=== PATIENT | male | born 1985 | race Hispanic/Latino ===

== ENCOUNTER 2019-05-26 19:16 | Emergency (ER) | payer SELFPAY ==
[2019-05-26 19:23] VITALS: BP 170/100
--- NOTE | 2019-05-26 19:27 | Event Note ---
ED Screening Note ED Screening Note: Here for ETOH detox needs med clearance This initial assessment/diagnostic orders/clinical plan/treatment(s) is/are subject to change based on patients health status, clinical progression and re- assessment by fellow clinical providers in the ED. Further treatment and workup at subsequent clinical providers discretion. Patient/guardian urged not to elope from the ED as their condition may be serious if not clinically assessed and managed. Initial orders include: labs ua
== END 2019-05-26 20:15 | disposition left against medical advice (07) ==
LOC: EEVIPCON 19:16 → ED 19:16
DX: Z00.00 Encounter for general adult medical examination without abnormal findings (principal); Z53.21 Procedure and treatment not carried out due to patient leaving prior to being seen by health care provider

== ENCOUNTER 2019-05-30 10:15 | Emergency (ER) | payer SELFPAY ==
[2019-05-30 10:47] LABS: Basophils # (Auto) 0.1 K/mm3 (0.0-0.1); Basophils % (Auto) 0.6 % (0.0-1.8); Eosinophils # (Auto) 0.2 K/mm3 (0.0-0.4); Eosinophils % (Auto) 1.4 % (0.0-4.3); Hematocrit 51.4 % (35.5-45.6); Hemoglobin 17.9 gm/dl (11.8-15.2); Lymphocytes # (Auto) 2.2 K/mm3 (1.2-5.4); Lymphocytes % (Auto) 20.7 % (13.4-35.0); Mean Corpuscular HGB Conc 35 % (32-34); Mean Corpuscular Volume 102 fl (84-94); Monocytes # (Auto) 0.7 K/mm3 (0.0-0.8); Platelet Count 272 K/mm3 (140-440); Red Blood Count 5.04 M/mm3 (3.65-5.03); Red Cell Distribution Width 13.4 % (13.2-15.2)
[2019-05-30 11:04] LABS: Alanine Aminotransferase 328 units/L (7-56); Albumin 4.9 g/dL (3.9-5); BUN/Creatinine Ratio 10; Blood Urea Nitrogen 7 mg/dL (9-20); Calcium 10.1 mg/dL (8.4-10.2); Hemolysis Index 7
[2019-05-30 11:07] LABS: Amphetamine Screen,Urine PRESUMPTIVE NEGATIVE; Benzodiazepines Screen,Urine PRESUMPTIVE NEGATIVE; Cocaine Screen,Urine PRESUMPTIVE NEGATIVE; Methadone Screen,Urine PRESUMPTIVE NEGATIVE; Opiate Screen,Urine PRESUMPTIVE NEGATIVE
[2019-05-30 11:31] LABS: Cannabinoid Screen,Urine PRESUMPTIVE POSITIVE
[2019-05-30] MEDS ORDERED: VITAMIN B-1 100 MG, FOLVITE 1 MG, INFUVITE 10 ML in NACL 0.9% 1000 ML 1,000 ML IV ONE (13:42)
[2019-05-30] MEDS ORDERED: ZOFRAN IV ONE (13:42)
[2019-05-30] MEDS ORDERED: NACL 0.9% 1000 ML 1,000 ML IV ONE (13:43)
[2019-05-30] MEDS ORDERED: ATIVAN IV ONE ×3 (13:43→20:25)
--- NOTE | 2019-05-30 14:23 | Emergency Department Report ---
<MARY VILLAVICENCIO - Last Filed: 05/30/19 20:54> ED Alcohol HPI - General Chief Complaint: Medical Clearance Stated Complaint: DETOX CLEARANCE Time Seen by Provider: 05/30/19 13:09 - Related Data Allergies Allergy/AdvReac Type Severity Reaction Status Date / Time codeine Allergy Swelling Verified 05/26/19 19:18 ED Medical Decision Making - Lab Data Result diagrams: 05/30/19 10:26 05/30/19 10:26 - Medical Decision Making The patient is medically cleared Patient will be going to [facility] via private vehicle ED Disposition Clinical Impression: Alcohol abuse, Dehydration, Medical clearance for psychiatric admission, Nausea and vomiting Disposition: [id number]/TX-[id number] ANOTHER TYPE HLTHCARE Is pt being admited?: No Does the pt Need Aspirin: No Condition: Stable Instructions: Abuse of Alcohol (ED) Referrals: PRIMARY CARE,MD [Primary Care Provider] - 3-5 Days [facility] [Provider Group] - 3-5 Days [facility] [Provider Group] - 3-5 Days Time of Disposition: 20:56 <SUKI ROSALES - Last Filed: 05/31/19 13:08> ED Alcohol HPI - General Source: patient Mode of arrival: Ambulatory Limitations: Language Barrier (indirect fire infantryman used) - History of Present Illness Initial Comments: 33-year-old male with a past medical history of hypertension and alcohol abuse as to the hospital requesting medical clearance for alcohol detox. He apparently contacted [place] [facility] prior to arrival and was sent for medical clearance. Patient drinks about half a gallon of liquor daily. Last drink was 2-4 hours prior to arrival. Patient's history of alcohol withdrawal tremors but denies seizures. The last 5 days patient states he has had nausea, vomiting, and poor fluid and food intake. He's had occasional blood-streaked vomitus and denies any melena, bloody stools, or fevers. Patient admits to marijuana use. He denies suicidal ideation, homicidal ideation, or hallucin ations. ED Review of Systems ROS: Stated complaint: DETOX CLEARANCE Other details as noted in HPI Comment: All other systems reviewed and negative ED Past Medical Hx - Past Medical History Previous Medical History?: Yes Hx Hypertension: Yes - Surgical History Past Surgical History?: Yes Additional Surgical History: right thumb surgery - Social History Smoking Status: Unknown if ever smoked ED Physical Exam - General Limitations: No Limitations - Other Other exam information: Normal: No acute distress Head: Atraumatic Eyes: Normal appearance, pupils equally reactive to light, extraocular movements intact ENT: Moist mucous membranes Neck: Normal appearance, no midline cervical tenderness, no meningismus Chest: Clear to auscultation bilaterally, no wheezes, rales, crackles Cardiovascular: Regular rate and rhythm Abdomen: Soft, nontender, nondistended, no rebound or guarding, normal bowel sounds Back: Normal inspection Extremity: Normal appearance, full range of motion Neuro: Alert and oriented 3, speech normal, no gross motor sensory deficit, resting tremor noted Psych: Appropriate Skin: No rash ED Course Vital Signs 05/30/19 05/30/19 05/30/19 10:20 13:34 15:44 Temperature 98.4 F 98.0 F Pulse Rate 106 H 88 111 H Respiratory 22 14 18 Rate Blood Pressure 140/97 116/87 Blood Pressure 140/97 141/65 [Left] O2 Sat by Pulse 98 100 Oximetry 05/30/19 05/30/19 05/30/19 16:51 18:48 19:09 Temperature Pulse Rate 85 95 H 109 H Respiratory 17 18 18 Rate Blood Pressure Blood Pressure 132/61 132/66 125/69 [Left] O2 Sat by Pulse 100 100 100 Oximetry ED Medical Decision Making - Lab Data Result diagrams: 05/30/19 10:26 05/30/19 10:26 Lab Results 05/30/19 05/30/19 05/30/19 Range/Units 10:26 10:26 10:26 WBC 10.6 (4.5-11.0) K/mm3 RBC 5.04 H (3.65-5.03) M/mm3 Hgb 17.9 H (11.8-15.2) gm/dl Hct 51.4 H (35.5-45.6) % MCV 102 H (84-94) fl MCH 36 H (28-32) pg MCHC 35 H (32-34) % RDW 13.4 (13.2-15.2) % Plt Count 272 (140-440) K/mm3 Lymph % (Auto) 20.7 (13.4-35.0) % [place] % (Auto) 7.0 (0.0-7.3) % Eos % (Auto) 1.4 (0.0-4.3) % Baso % (Auto) 0.6 (0.0-1.8) % Lymph # 2.2 (1.2-5.4) K/mm3 [place] # 0.7 (0.0-0.8) K/mm3 Eos # 0.2 (0.0-0.4) K/mm3 Baso # 0.1 (0.0-0.1) K/mm3 Seg Neutrophils % 70.3 H (40.0-70.0) % Seg Neutrophils # 7.5 (1.8-7.7) K/mm3 PT (12.2-14.9) Sec. INR (0.87-1.13) APTT (24.2-36.6) Sec. Sodium 137 (137-145) mmol/L Potassium 3.9 (3.6-5.0) mmol/L Chloride 95.6 L (98-107) mmol/L Carbon Dioxide 23 (22-30) mmol/L Anion Gap 22 mmol/L BUN 7 L (9-20) mg/dL Creatinine 0.7 L (0.8-1.5) mg/dL Estimated GFR > 60 ml/min BUN/Creatinine Ratio 10 % Glucose 109 H (75-100) mg/dL Calcium 10.1 (8.4-10.2) mg/dL Magnesium (1.7-2.3) mg/dL Total Bilirubin 0.70 (0.1-1.2) mg/dL AST 414 H (5-40) units/L ALT 328 H (7-56) units/L Alkaline Phosphatase 135 H (35-129) units/L Total Protein 7.8 (6.3-8.2) g/dL Albumin 4.9 (3.9-5) g/dL Albumin/Globulin Ratio 1.7 % Lipase (13-60) units/L Urine Opiates Screen Urine Methadone Screen Ur Barbiturates Screen Ur Phencyclidine Scrn Ur Amphetamines Screen U Benzodiazepines Scrn Urine Cocaine Screen U Marijuana (THC) Screen Drugs of Abuse Note Plasma/Serum Alcohol 0.16 H (0-0.07) % Hepatitis A IgM Ab (NonReactive) Hep Bs Antigen (Negative) Hep B Core IgM Ab (NonReactive) Hepatitis C Antibody (NonReactive) 05/30/19 05/30/19 05/30/19 Range/Units 10:26 10:26 10:31 WBC (4.5-11.0) K/mm3 RBC (3.65-5.03) M/mm3 Hgb (11.8-15.2) gm/dl Hct (35.5-45.6) % MCV (84-94) fl MCH (28-32) pg MCHC (32-34) % RDW (13.2-15.2) % Plt Count (140-440) K/mm3 Lymph % (Auto) (13.4-35.0) % [place] % (Auto) (0.0-7.3) % Eos % (Auto) (0.0-4.3) % Baso % (Auto) (0.0-1.8) % Lymph # (1.2-5.4) K/mm3 [place] # (0.0-0.8) K/mm3 Eos # (0.0-0.4) K/mm3 Baso # (0.0-0.1) K/mm3 Seg Neutrophils % (40.0-70.0) % Seg Neutrophils # (1.8-7.7) K/mm3 PT (12.2-14.9) Sec. INR (0.87-1.13) APTT (24.2-36.6) Sec. Sodium (137-145) mmol/L Potassium (3.6-5.0) mmol/L Chloride (98-107) mmol/L Carbon Dioxide (22-30) mmol/L Anion Gap mmol/L BUN (9-20) mg/dL Creatinine (0.8-1.5) mg/dL Estimated GFR ml/min BUN/Creatinine Ratio % Glucose (75-100) mg/dL Calcium (8.4-10.2) mg/dL Magnesium 2.20 (1.7-2.3) mg/dL Total Bilirubin (0.1-1.2) mg/dL AST (5-40) units/L ALT (7-56) units/L Alkaline Phosphatase (35-129) units/L Total Protein (6.3-8.2) g/dL Albumin (3.9-5) g/dL Albumin/Globulin Ratio % Lipase 55 (13-60) units/L Urine Opiates Screen Presumptive negative Urine Methadone Screen Presumptive negative Ur Barbiturates Screen Presumptive negative Ur Phencyclidine Scrn Presumptive negative Ur Amphetamines Screen Presumptive negative U Benzodiazepines Scrn Presumptive negative Urine Cocaine Screen Presumptive negative U Marijuana (THC) Screen Presumptive positive Drugs of Abuse Note Disclamer Plasma/Serum Alcohol (0-0.07) % Hepatitis A IgM Ab Non-reactive (NonReactive) Hep Bs Antigen Non-reactive (Negative) Hep B Core IgM Ab Non-reactive (NonReactive) Hepatitis C Antibody Non-reactive (NonReactive) 05/30/19 Range/Units 14:34 WBC (4.5-11.0) K/mm3 RBC (3.65-5.03) M/mm3 Hgb (11.8-15.2) gm/dl Hct (35.5-45.6) % MCV (84-94) fl MCH (28-32) pg MCHC (32-34) % RDW (13.2-15.2) % Plt Count (140-440) K/mm3 Lymph % (Auto) (13.4-35.0) % [place] % (Auto) (0.0-7.3) % Eos % (Auto) (0.0-4.3) % Baso % (Auto) (0.0-1.8) % Lymph # (1.2-5.4) K/mm3 [place] # (0.0-0.8) K/mm3 Eos # (0.0-0.4) K/mm3 Baso # (0.0-0.1) K/mm3 Seg Neutrophils % (40.0-70.0) % Seg Neutrophils # (1.8-7.7) K/mm3 PT 12.7 (12.2-14.9) Sec. INR 0.98 (0.87-1.13) APTT 24.9 (24.2-36.6) Sec. Sodium (137-145) mmol/L Potassium (3.6-5.0) mmol/L Chloride (98-107) mmol/L Carbon Dioxide (22-30) mmol/L Anion Gap mmol/L BUN (9-20) mg/dL Creatinine (0.8-1.5) mg/dL Estimated GFR ml/min BUN/Creatinine Ratio % Glucose (75-100) mg/dL Calcium (8.4-10.2) mg/dL Magnesium (1.7-2.3) mg/dL Total Bilirubin (0.1-1.2) mg/dL AST (5-40) units/L ALT (7-56) units/L Alkaline Phosphatase (35-129) units/L Total Protein (6.3-8.2) g/dL Albumin (3.9-5) g/dL Albumin/Globulin Ratio % Lipase (13-60) units/L Urine Opiates Screen Urine Methadone Screen Ur Barbiturates Screen Ur Phencyclidine Scrn Ur Amphetamines Screen U Benzodiazepines Scrn Urine Cocaine Screen U Marijuana (THC) Screen Drugs of Abuse Note Plasma/Serum Alcohol (0-0.07) % Hepatitis A IgM Ab (NonReactive) Hep Bs Antigen (Negative) Hep B Core IgM Ab (NonReactive) Hepatitis C Antibody (NonReactive) ua pending - EKG Data -: EKG Interpreted by Me EKG shows normal: sinus rhythm, axis (qrs 77), QRS complexes (qrsd 86), ST-T waves (no stemi) Rate: tachycardia (110) - Radiology Data Radiology results: report reviewed CT abdomen pelvis w con INDICATION: n,v, etoh abuse. TECHNIQUE: All CT scans at this location are performed using CT dose reduction for ALARA by means of automated exposure control. COMPARISON: None available. FINDINGS: Lung bases are clear. Marked, diffuse hepatic steatosis, with no focal liver lesions. Gallbladder, spleen, pancreas, kidneys and adrenals are negative. Abdominal aorta is normal in size. No adenopathy. Incidental small hiatal hernia. Pelvis Normal appendix. Urinary bladder and distal ureters are negative. Several loops of small bowel, primarily mid small bowel, appear slightly thick walled, suggesting enteritis. No skeletal lesions. IMPRESSION: 1. Slight small bowel wall thickening, suggesting enteritis. 2. Severe hepatic steatosis. - Medical Decision Making pt pending CT abdomen and pelvis for medical clearance. Required Ativan for agitation and mild tremor. Also treated with banana bag. Mental health confirmed that patient is accepted to [place] detox pending clearance. He would need to be transferred once medically cleared since he is receiving multiple benzos in the ED. UA result pending. Dr Villavicencio to f/u ct and UA and dispo for transfer if clear - Differential Diagnosis alcoholic gastritis, pancreatitis, hepatitis, dehydration, withdrawal Critical Care Time: No Critical care attestation.: If time is entered above; I have spent that time in minutes in the direct care of this critically ill patient, excluding procedure time. ED Disposition Is pt being admited?: No Does the pt Need Aspirin: No
[2019-05-30 14:32] LABS: Hepatitis B Surface Antigen Non-Reactive (Negative); Hepatitis C Virus Antibody Non-Reactive (NonReactive)
[2019-05-30 14:58] LABS: INR 0.98 (0.87-1.13)
[2019-05-30 15:00] LABS: Partial Thromboplastin Time 24.9 Sec. (24.2-36.6)
[2019-05-30 19:10] VITALS: BP 125/69
--- NOTE | 2019-05-30 19:18 | Cat Scan Report ---
CT abdomen pelvis w con INDICATION: n,v, etoh abuse. TECHNIQUE: All CT scans at this location are performed using CT dose reduction for ALARA by means of automated e xposure control. COMPARISON: None available. FINDINGS: Lung bases are clear. Marked, diffuse hepatic steatosis, with no focal liver lesions. Gallbladder, sp viola, pancreas, kidneys and adrenals are negative. Abdominal aorta is normal in size. No adenopathy. Incidental small hiatal hernia. Pelvis Normal appendix. Urinary bladder and distal ureters are negative. Several loops of small bowel, prima rily mid small bowel, appear slightly thick walled, suggesting enteritis. No skeletal lesions. IMPRESSION: 1. Slight small bowel wall thickening, suggesting enteritis. 2. Severe hepatic steatosis. Signer Name: Vahid Quispe MD Signed: 05/30/2019 7:14 PM Workstation Name: [id number]
[2019-05-30] MEDS ORDERED: ATIVAN ONE (20:28)
== END 2019-05-30 21:25 | disposition other institution (70) ==
LOC: ED 10:15
DX: F10.10 Alcohol abuse, uncomplicated (principal); E86.0 Dehydration; R11.2 Nausea with vomiting, unspecified; R10.9 Unspecified abdominal pain; I10 Essential (primary) hypertension; Z98.890 Other specified postprocedural states; Z88.5 Allergy status to narcotic agent
CPT/HCPCS: 36415; 74177; 80053; 80074; 80307; 83690; 83735; 85025; 85610; 85730; 93005; 93010; 96361; 96365; 96375; 96376; 99284; J2060; J2405; J3411; J7030; Q9967; 80320; G0480